=== PATIENT | male | born 1980 | race Caucasian/White ===

== ENCOUNTER 2020-01-07 16:22 | Emergency (ER) | payer SELFPAY ==
[2020-01-07 16:24] VITALS: BP 164/105; PULSE 95; RESP 18; TEMP 36.4; O2SAT 94; BMI 37.5
--- NOTE | 2020-01-07 17:58 | ED_ITS ---
HPI - Back Pain/Injury General: Chief Complaint: Back Pain/Injury Stated Complaint: BACK INJURY Time Seen by Provider: 01/07/20 17:55 History of Present Illness: HPI Narrative: Patient was lifting a washing machine yesterday and slipped on wet floor and landed on his butt and now he has back pain. Has a history of chronic back pain. MD elicited complaint: back pain, back injury and fall Pertinent past history: prior back pain Onset (ago): day(s) (1) Timing: progressively worsening Severity: moderate Similar Symptoms Previously: Yes Quality: burning Location: lumbar spine Radiation: buttocks Exacerbating factors: movement and lifting Relieving factors: immobilization Context: while lifting and fall Associated symptoms: Reports no associated symptoms; Deny abdominal pain, chills, fever(s), nausea or vomiting Treatments prior to arrival: cold therapy and NSAIDS Review of Systems Const: Denies: fever, chills or body aches Eyes: Denies: change in vision or blurry vision ENMT: Denies: throat pain or nasal congestion Card: Denies: chest pain or shortness of breath on exertion Resp: Denies: shortness of breath, productive cough or non-productive cough GI: Denies: abdominal pain, nausea or vomiting : Denies: difficulty urinating Musc: Reports: back pain; Denies: extremity pain Skin/Breast: Denies: rash Neuro: Denies: headache Psych: Denies: anxiety or depression [place]/Lymph: Denies: easy bruising PFS ED PFSH: Social History Smoking and tobacco status: current every day smoker Physical Exam Const: COMMON NORMALS: no apparent distress, average body habitus and oriented x3 HENMT: COMMON NORMALS: normocephalic HEAD & SCALP: normal to inspection and normocephalic FACE & SINUS: normal facial exam Eye: COMMON NORMALS: conjunctivae normal GENERAL EYE: normal appearance of both eyes CONJUNCTIVA: Yes conjunctivae normal Neck/C-Spine: COMMON NORMALS: no JVD Chest: COMMONS NORMALS: inspection of chest normal Resp: COMMON NORMALS: normal respiratory effort and clear to auscultation bilaterally AUSCULTATION: clear to auscultation bilaterally Cardio: COMMON NORMALS: no JVD, regular rate and regular rhythm RATE: regular rate RHYTHM: regular rhythm GI: COMMON NORMALS: normal to inspection, nondistended, normoactive bowel sounds Back/Pelvis: LUMBAR SPINE/LOWER BACK: Yes lumbar spinal tenderness Lumbar spinal tenderness location: L2 and L3 and Yes paraspinal muscle tenderness Extremity: COMMON NORMALS: normal to inspection and full ROM Neuro: COMMON NORMALS: oriented x3 Course Vital Signs: Vital signs: Vital Signs Temperature 97.6 F 01/07/20 16:24 Pulse Rate 95 01/07/20 16:24 Respiratory Rate 18 01/07/20 16:24 Blood Pressure 164/105 01/07/20 16:24 Pulse Oximetry 94 01/07/20 16:24 MDM - Back Pain/Injury MDM Narrative: Medical decision making narrative: I recommended lumbar x-rays for possible compression fracture explained to him what a compression fracture was patient declined it due to the cost of the x-rays. Discharge Plan Discharge Patient Disposition: Home, Self-Care Clinical Impression: Acute lumbar back pain Qualifiers: Back pain laterality: midline Sciatica presence: without sciatica Qualified Code(s): M54.5 - Low back pain Condition: Stable Prescriptions: New Medrol (Rudolph) 4 mg tablets,dose pack See Rx Instructions .ROUTE .COMPLEX Qty: 21 RF: 0 cyclobenzaprine 5 mg tablet 5 mg PO TID PRN (Reason: muscle spasm) Qty: 10 RF: 0 tramadol 50 mg tablet 50 mg PO Q6H PRN (Reason: pain) Qty: 14 RF: 0 Discharge Orders: Discharge Order (Routine); Ordered 01/07/20 Ordered By: Nikhil Pinzon Discharge Diet: Usual diet Discharge Activity: Increase activity as tolerated Patient Instructions: Acute Low Back Pain (ED) Activity Restrictions/Additional Instructions: Follow-up with medical provider as directed. Take medications as prescribed. Return to the ER or your medical provider if condition worsens. Please read and understand discharge instructions. If any questions ask please. No lifting over 10 to 15 pounds for the next 2 weeks. Did discuss the possibility of a compression fracture and if pain does not improve follow-up with primary care or return here. Coding Level of Care Code ED Journalism Professor for Pham Fwmoustapha Exam Comprehensive
[2020-01-07 18:14] VITALS: BP 176/66; PULSE 65; RESP 14; TEMP 36.5; O2SAT 96
== END 2020-01-07 18:15 | disposition home or self-care (01) ==
LOC: ER 18:10
PROVIDERS: Emergency Provider Nurse Practitioner Family
DX: M54.5 Low back pain (principal); X50.0XXA Overexertion from strenuous movement or load, initial encounter; W01.0XXA Fall on same level from slipping, tripping and stumbling without subsequent striking against object, initial encounter; F17.210 Nicotine dependence, cigarettes, uncomplicated
CPT/HCPCS: 12345; 99281

== ENCOUNTER 2020-03-27 14:46 | Emergency (ER) | payer SELFPAY ==
[2020-03-27 14:56] VITALS: BP 170/104; PULSE 101; RESP 14; TEMP 36.8; O2SAT 96; BMI 42.5
--- NOTE | 2020-03-27 15:05 | XR_ITS ---
WS: [id number] XR knee LT 3V* [id number] REASON FOR EXAM: FALL FINDINGS: The meniscal spaces are well preserved. The patella shows no fractures. The femur, tibia, fibula, all show normal appearance. No unusual soft tissue swelling. XR/XR knee LT 3V* [id number] IMPRESSION: Negative left knee.
--- NOTE | 2020-03-27 16:19 | DCPLANNER ---
manager commercial was asked to schedule a follow up appointment for patient with ortho. manager commercial called the ortho clinic, spoke with Nalini, gave clinic patients information. manager commercial was told that patients information would be printed and reviewed. Clinic will call case resource manager and patient with appointment information.
--- NOTE | 2020-03-27 16:35 | ED_ITS ---
HPI - Extremity Problem General: Chief complaint: Extremity Injury, Lower Stated complaint: knee pain Time Seen by Provider: 03/27/20 15:57 History of Present Illness: HPI Narrative: Fell while skating on a skateboard 2 weeks ago. He has had persistent pain in his left knee since then. Pain is worse on weightbearing. Pain is making it difficult for him to sleep. He has tried [id number] meds as well as ice with no improvement. MD Complaint: joint pain Onset (ago): week(s) (2) Pain Consistency: constant Location: left Severity scale (1-10): 10 Quality: sharp Radiation: none Relieving factors: nothing Exacerbating factors: range of motion and weight bearing Associated symptoms: Deny fever(s) Review of Systems General: Reports: 10 or more systems reviewed and unremarkable except in HPI and below Const: Denies: fever(s), chills or body aches Card: Denies: palpitations, irregular heart rhythm, edema or swelling of feet/ankles Resp: Denies: dyspnea, productive cough or non-productive cough GI: Denies: abdominal pain, nausea or vomiting : Denies: flank pain, dysuria, urinary frequency, urinary urgency or urinary hesitancy Musc: Reports: extremity pain and joint pain; Denies: neck pain, back pain or extremity swelling Neuro: Denies: headache(s), numbness in extremities or weakness in extremities PFSH ED PFSH: Social History Smoking and tobacco status: current every day smoker cigarettes Packs smoked per day: 1 Quit status (tobacco): not considering quitting Alcohol intake: never Desire information about alcohol rehabilitation?: No Desire information about substance/drug rehabilitation?: No History of recent travel: No Current gender identity: Male Physical Exam Const: COMMON NORMALS: no acute distress, average body habitus, patient oriented x3, no limitations, healthy appearing, alert and well nourished Neck/C-Spine: COMMON NORMALS: full ROM, supple, no meningeal signs, no JVD and No carotid bruits Resp: COMMON NORMALS: normal respiratory effort, No retractions, No use of ac cessory muscles, clear to auscultation bilaterally and percussion normal AUSCULTATION: clear to auscultation bilaterally PERCUSSION: percussion normal Cardio: COMMON NORMALS: no JVD, regular rate, regular rhythm, S1 normal heart sound present, S2 normal heart sound present, No gallops present (Cardio), No clicks present (Cardio), No murmurs present (Cardio), No rub (Cardio) and Peripheral pulses 2+ throughout RATE: regular rate RHYTHM: regular rhythm HEART SOUNDS: S1 normal heart sound present and S2 normal heart sound present PERIPHERAL PULSES: Peripheral pulses 2+ throughout GI: COMMON NORMALS: Normal to inspection, nondistended, normoactive bowel sounds present, Soft to palpation, non-tender, No hepatosplenomegaly present, no masses and no bruits PALPATION: Yes Soft to palpation and Yes No hepatosplenomegaly present : COMMON NORMALS: Yes no CVA tenderness BLADDER/KIDNEY EXAM: Yes no CVA tenderness Back/Pelvis: COMMON NORMALS: no CVA tenderness Extremity: COMMON NORMALS: normal to inspection, full ROM, capillary refill normal, no calf tenderness and no pedal edema LEFT LOWER EXTREMITY: Yes knee joint Left knee: Yes palpation (tenderness lateral joint line, and around the lateral collateral ligament ) Neuro: COMMON NORMALS: patient oriented x3 SENSORIUM/ORIENTATION: Yes alert MENINGEAL SIGNS: Yes no meningeal signs Course Vital Signs: Vital signs: Vital Signs Temperature 98.3 F 03/27/20 14:56 Pulse Rate 92 03/27/20 17:04 Respiratory Rate 16 03/27/20 17:04 Blood Pressure 164/106 03/27/20 17:04 Pulse Oximetry 96 03/27/20 17:04 MDM - Extremity (Nontraumatic) MDM Narrative: Medical decision making narrative: 40-year-old male who presents with knee pain of 2 weeks duration following a fall while skating. X-ray in the emergency department is negative for acute findings. He is advised that he will need an MRI for further evaluation, he is referred to orthopedic surgery for further evaluation and management. Medical Records: Attestation: I reviewed the patient's medical records. Imaging Data^: Xray Ortho: Radiologist's impression: [address] [address] XRay Report Signed Patient: Shelton Rojas RUnkrysten #: [id number] : 1980Acct#:[id number] Age/Sex: 40 / MADM Date: 03/27/20 Loc: ERRoom/Bed: Attending Dr: Ordering Provider/Ordering MD: May Rios [place], [facility] [place]: 03/27/20 Procedure(s): XR knee LT 3V* [id number] Accession Number(s): [id number] Report Number: [id number] WS: [id number] XR knee LT 3V* [id number] REASON FOR EXAM: FALL FINDINGS: The meniscal spaces are well preserved. The patella shows no fractures. The femur, tibia, fibula, all show normal appearance. No unusual soft tissue swelling. XR/XR knee LT 3V* [id number] IMPRESSION: Negative left knee. Dictated By:Jason Holguin DO Signed By:Jason Holguin DOSigned Date/Time:03/27/201547 DD/ 47 Discharge Plan Discharge Patient Disposition: Home, Self-Care Clinical Impression: Acute knee pain Qualifiers: Laterality: left Qualified Code(s): M25.562 - Pain in left knee Condition: Stable Prescriptions: [place] 5-325 mg tablet 1 tab PO Q8H PRN (Reason: pain) Qty: 12 RF: 0 Continued Bystolic 20 mg tablet 20 mg PO DAILY RF: 0 Discharge Orders: Discharge Order (Routine); Ordered 03/27/20 Ordered By: May Rios Patient Instructions: Knee Pain (ED) Activity Restrictions/Additional Instructions: Return for any new or worsening symptoms. You will be contacted by the office of the orthopedic surgeon and an appointment scheduled for you to be seen. You most likely need an MRI of the knee, the surgeons will order it. Take the pain medication as needed. Also take naproxen as needed. Discharge Date/Time: 03/27/20 17:04 Coding Level of Care Code ED Phlebotomist Supervisor/Instructor for Pham Villatoro
[2020-03-27 17:04] VITALS: BP 164/106; PULSE 92; RESP 16; O2SAT 96
--- NOTE | 2020-04-04 15:27 | DCPLANNER ---
Patient had a follow up appointment scheduled for 03.29.20 with ortho. Patient did attend the appointment.
== END 2020-03-27 17:04 | disposition home or self-care (01) ==
PROVIDERS: Emergency Provider Family Medicine
DX: M25.562 Pain in left knee (principal); F17.210 Nicotine dependence, cigarettes, uncomplicated
CPT/HCPCS: 12345; 73562; 99281; 99282

== ENCOUNTER → 2020-04-16 10:35 | Outpatient (BNVA) | payer SELFPAY | PROVIDERS: Referring Provider Orthopaedic Surgery; Visit Provider Specialist | DX: M25.562 Pain in left knee (principal) | CPT/HCPCS: 73560; 73565 ==

== ENCOUNTER 2022-12-07 12:34 | Emergency (ER) | payer SELFPAY ==
[2022-12-07 12:37] VITALS: BMI 39.5
[2022-12-07 12:41] VITALS: BP 155/99; PULSE 105; RESP 20; TEMP 37.4; O2SAT 92
--- NOTE | 2022-12-07 13:02 | ED_ITS ---
HPI - Burn/Smoke Inhalation General: Chief complaint: Burn/Smoke Inhalation Stated complaint: Right foot grease burn, Swollen Time Seen by Provider: 12/07/22 12:53 History of Present Illness: Patient is a nontoxic 42-year-old male who presents to the ER for evaluation of a burn injury to the dorsal aspect of the right foot. 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 The hot oil spilled onto his right shoe and saturated the sock on the right foot. He sustained a large blister to the dorsal aspect of the right foot which has unroofed and scabbed over now. He has moderate swelling to the dorsal aspect of the right foot and pain. Associated symptoms: Deny chest pain, diaphoresis or fever(s) Review of Systems Const: Denies: fever(s), malaise or diaphoresis Card: Denies: chest pain Resp: Denies: dyspnea PFSH ED PFSH: Social History Smoking and tobacco status: current every day smoker cigarettes Packs smoked per day: 1 Quit status (tobacco): not considering quitting Alcohol intake: never Desire information about alcohol rehabilitation?: No Desire information about substance/drug rehabilitation?: No History of recent travel: No Current gender identity: Male Physical Exam Const: COMMON NORMALS: no acute distress, alert and well nourished GENERAL APPEARANCE: cooperative; not in distress HENMT: COMMON NORMALS: normocephalic and atraumatic HEAD & SCALP: normocephalic and atraumatic Eye: COMMON NORMALS: EOMs intact bilaterally Resp: COMMON NORMALS: normal respiratory effort, No retractions and No use of accessory muscles Cardio: COMMON NORMALS: Peripheral pulses 2+ throughout PERIPHERAL PULSES: Peripheral pulses 2+ throughout Neuro: SENSORIUM/ORIENTATION: Yes alert Skin: NARRATIVE SKIN EXAM: Dorsal aspect of the right foot has a scabbed over burn approximately 2 inches x 4 inches in size. The scab is dry. Patient reports having sensation to the scab from the burn. He has some surrounding erythema at the periphery of the cob[place] and tenderness diffusely to the foot with moderate swelling to the right foot. He has palpable pedal pulses to the right lower extremity. Course Vital Signs: Vital signs: Vital Signs Temperature 99.3 F 02/12/23 12:41 Pulse Rate 105 H 12/07/22 12:41 Respiratory Rate 20 H 12/07/22 12:41 Blood Pressure 155/99 12/07/22 12:41 Pulse Oximetry 92 12/07/22 12:41 Oxygen Delivery Me thod 12/07/22 12:41 MDM - Burn/Smoke Inhalation Medical Decision Making Nontoxic 42-year-old male with deep partial-thickness and potentially a full- thickness burn to the dorsal aspect of the right foot approximately 4 inches x 2 inches in size. He does report some sensation to the burn scab which makes me think this may not be a complete full-thickness injury. Regardless, I recommended cleaning his wound, double antibiotic placement liberally 2-3 times daily, keeping his wound covered, and referral to burn surgery. Patient will be given a prescription for pain medication. He is recommended to elevate his right foot to help with the swelling which is likely contributing to his pain. I will go ahead and place him on some broad-spectrum antibiotics as he does have some surrounding erythema from the burn and potential for secondary infection. He will be provided information for burn care and return precautions were provided. Discharge Plan Discharge Patient Disposition: Home Clinical Impression: Partial thickness burn of foot Condition: Stable Prescriptions: New hydrocodone-acetaminophen 5-325 mg tablet 1 tab PO Q8H PRN (Reason: pain) Qty: 14 0RF cephalexin 500 mg capsule 500 mg PO Q6H Qty: 28 0RF No Action hydrocodone-acetaminophen [[place]] 5-325 mg tablet 1 tab PO Q4H PRN (Reason: pain) 7 Days Qty: 20 0RF meloxicam 15 mg tablet 15 mg PO DAILY Qty: 30 0RF Bystolic 20 mg tablet 20 mg PO DAILY Rx Instructions: (pt is not taking) [place] 5-325 mg tablet 1 tab PO Q8H PRN (Reason: pain) Qty: 12 0RF Discharge Orders: Discharge ED (Routine); Ordered 12/07/22 Ordered By: Daljit Gandara Referrals: WOUND CARE CLINIC, [Staff Physician] - 1-3 days Patient Instructions: Opioid Safety, Pain Management Activity Restrictions/Additional Instructions: Keep your left foot clean and dry. Apply antibiotic ointment to your burn 2-3 times daily. Clean your wound daily with soap and water. Follow-up with Burn/wound care next week. Return to the ER for any concerns. Coding Level of Care Code ED Welder Apprentice Arc for Pham Villatoro
--- NOTE | 2022-12-07 13:16 | ED_ITS ---
HPI - Burn/Smoke Inhalation General: Chief complaint: Burn/Smoke Inhalation Stated complaint: Right foot grease burn, Swollen Time Seen by Provider: 12/07/22 12:53 History of Present Illness: Patient is a 42-year-old male with partial- thickness burn to the dorsal aspect of the right foot. 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 He sustained a blister to the dorsal aspect of the right foot and this unroofed. He has developed eschar in the center of the wound approximately 4 inches x 2 inches in size and some mild surrounding erythema and diffuse swelling to the right foot. He does report sensation intact to the middle of the wound. Associated symptoms: Deny fever(s) Review of Systems Const: Denies: fever(s) [facility] ED PFSH: Social History Smoking and tobacco status: current every day smoker cigarettes Packs smoked per day: 1 Quit status (tobacco): not considering quitting Alcohol intake: never Desire information about alcohol rehabilitation?: No Desire information about substance/drug rehabilitation?: No History of recent travel: No Current gender identity: Male Physical Exam Const: COMMON NORMALS: no acute distress, alert and well nourished GENERAL APPEARANCE: cooperative; not in distress HENMT: COMMON NORMALS: normocephalic and atraumatic HEAD & SCALP: normocephalic and atraumatic Eye: COMMON NORMALS: EOMs intact bilaterally Resp: COMMON NORMALS: normal respiratory effort, No retractions and No use of accessory muscles Cardio: COMMON NORMALS: Peripheral pulses 2+ throughout PERIPHERAL PULSES: Peripheral pulses 2+ throughout Extremity: COMMON NORMALS: full ROM Neuro: SENSORIUM/ORIENTATION: Yes alert Skin: OTHER: Approximately a 4 inch x 2 inch area of eschar that is scabbed over from previous blister unroofing from a burn. He does report sensation intact to the middle of the eschar. He has some surrounding erythema and the wound edges as well as some diffuse swelling of the foot. He is neurovascular intact distally. Course Vital Signs: Vital signs: Vital Signs Temperature 99.3 F 12/07/22 12:41 Pulse Rate 105 H 12/07/22 12:41 Respiratory Rate 20 H 12/07/22 12:41 Blood Pressure 155/99 12/07/22 12:41 Pulse Oximetry 92 12/07/22 12:41 Oxygen Delivery Me thod 12/07/22 12:41 MDM - Burn/Smoke Inhalation Medical Decision Making Patient is a nontoxic 42-year-old male with a partial-thickness and potentially full-thickness burn to the dorsal aspect of the right foot. Patient does have some mild sensation is still intact to the center of the scabbed over burn. Patient has some surrounding erythema concerning for possible developing infection. I recommended washing with soap and water his burn daily and applying double antibiotic ointment to the burn 2-3 times daily and keeping it covered. We will refer him to wound care for burn evaluation. I will go ahead and prescribe him some cephalexin and pain medication and recommend he keep his foot elevated to help with swelling. He is comfortable with the plan and was given return precautions. Discharge Plan Discharge Patient Disposition: Home Clinical Impression: Partial thickness burn of foot Condition: Stable Prescriptions: New hydrocodone-acetaminophen 5-325 mg tablet 1 tab PO Q8H PRN (Reason: pain) Qty: 14 0RF cephalexin 500 mg capsule 500 mg PO Q6H Qty: 28 0RF No Action hydrocodone-acetaminophen [[place]] 5-325 mg tablet 1 tab PO Q4H PRN (Reason: pain) 7 Days Qty: 20 0RF meloxicam 15 mg tablet 15 mg PO DAILY Qty: 30 0RF Bystolic 20 mg tablet 20 mg PO DAILY Rx Instructions: (pt is not taking) [place] 5-325 mg tablet 1 tab PO Q8H PRN (Reason: pain) Qty: 12 0RF Discharge Orders: Discharge ED (Routine); Ordered 12/07/22 Ordered By: Daljit Gandara Referrals: WOUND CARE CLINIC, [Staff Physician] - 1-3 days Patient Instructions: Opioid Safety, Pain Management Activity Restrictions/Additional Instructions: Keep your left foot clean and dry. Apply antibiotic ointment to your burn 2-3 times daily. Clean your wound daily with soap and water. Follow-up with Burn/wound care next week. Return to the ER for any concerns. Coding Level of Care Code ED Electrode Cleaning Machine Operator for Pham Villatoro
[2022-12-07] MEDS: levETIRAcetam 500 mg Tablet 750 MG PO (13:25)
[2022-12-07 13:30] VITALS: BP 154/111
--- NOTE | 2022-12-08 13:03 | DCPLANNER ---
Addendum entered by Kim Escobar 12/10/22 13:32: Patient had an appointment scheduled with wound care - appointment was cancelled Original Note: manager radiation had message to schedule a follow up appointment for patient with wound care. manager radiation sent patients information to the front office of Wound Care. Patients information will be printed and reviewed. Clinic will call patient with appointment information.
== END 2022-12-07 13:31 | disposition home or self-care (01) ==
PROVIDERS: Emergency Provider Student in an Organized Health Care Education/Training Program
DX: T25.221A Burn of second degree of right foot, initial encounter (principal); X12.XXXA Contact with other hot fluids, initial encounter; F17.210 Nicotine dependence, cigarettes, uncomplicated
CPT/HCPCS: 12345; 99283